=== PATIENT | male | born 1995 | race Caucasian/White ===

== ENCOUNTER 2017-06-19 15:01 | Emergency (ER) | payer OTHER ==
[~2017-06-19] VITALS: Ht 172.7 cm; Wt 86.6 kg
[2017-06-19 15:57] LABS: HEMATOCRIT 46.7 % (38.0-50.0); MCH 29.4 PG (29.0-34.0); MCHC 34.3 G/DL (30.0-36.0); MCV 85.8 FL (86-99); MEAN PLAT.VOLUME 9.6 uM^3 (9.0-12.4); PLATELET COUNT 205 K/uL (156-360); RBC DIS.WIDTH-CV 12.6 % (11.8-14.6); RBC DIS.WIDTH-SD 38.9 % (39-53); RED BLOOD COUNT 5.44 M/uL (4.00-5.50); WHITE BLOOD COUNT 6.1 K/uL (4.1-10.2)
[2017-06-19 16:02] LABS: ADD MIUA? NO; BILIRUBIN NEGATIVE; BLOOD NEGATIVE; COLOR YELLOW ((YELLOW)); GLUCOSE (STRIP) NEGATIVE; KETONES 5; LEUKOCYTES NEGATIVE; NITRITE NEGATIVE; PROTEIN (STRIP) NEGATIVE; SPECIFIC GRAVITY 1.023 (1.000-1.030); UCUL ADDED? NO; UROBILINOGEN 0.2 MG/DL (0.2-1.0)
[2017-06-19 16:05] LABS: CHLORIDE 105 mEq/L (99-109); SODIUM 142 mEq/L (136-147)
[2017-06-19 16:06] LABS: GLUCOSE 103 mg/dL (70-99)
[2017-06-19 16:08] LABS: ANION GAP 10 MEQ/L (2-14)
[2017-06-19 16:10] LABS: GFR ESTIMATE (CALCULATED) > 59 mL/min/
[2017-06-19 16:11] LABS: UREA NITROGEN (BUN) 12 mg/dL (9-23)
[2017-06-19 16:28] LABS: INTERNAL CONTROL VALID? YES; MONOSPOT (MONONUCLEOSIS SEROL) NEGATIVE
[2017-06-19 17:06] VITALS: BP 00/0
[2017-06-21 13:14] LABS: CHLAMYDIA TRACHOMATIS NEGATIVE; NEISSERIA GONORRHOEAE NEGATIVE
== END 2017-06-19 17:25 | disposition home or self-care (01) ==
LOC: EME 15:01
PROVIDERS: Nurse Practitioner Family
DX: B34.9 Viral infection, unspecified (principal); R05 Cough; J02.9 Acute pharyngitis, unspecified; R10.30 Lower abdominal pain, unspecified; M54.9 Dorsalgia, unspecified
CPT/HCPCS: 80048; 81003; 85027; 86308; 87491; 87591; 87651 90; 99281; 99284